=== PATIENT | male | born 1985 | race Caucasian/White ===

== ENCOUNTER 2022-09-07 14:18 | Emergency (ER) | payer BC, OTHER ==
[2022-09-07 15:22] LABS: BASOPHILS ABSOLUTE AUTO 0.08 K/mm3 (0.01-0.08); BASOPHILS PERCENT AUTO 0.7 % (0.1-1.2); EOSINOPHILS ABSOLUTE AUTO 0.15 K/mm3 (0.04-0.54); EOSINOPHILS PERCENT AUTO 1.3 (0.8-7.0); HEMATOCRIT 45.7 % (40.1-51.0); HEMOGLOBIN 15.5 gm/dl (13.7-17.5); IMMATURE GRAN ABSOLUTE AUTO 0.31 K/mm3 (0.00-0.10); IMMATURE GRAN PERCENT AUTO 2.7 % (<=1.0); LYMPHOCYTES ABSOLUTE AUTO 3.16 K/mm3 (1.32-3.57); LYMPHOCYTES PERCENT AUTO 27.2 % (21.8-53.1); MEAN CORPUSCULAR HEMOGLOBIN 28.2 pg (25.7-32.2); MEAN CORPUSCULAR HGB CONC 33.9 g/dl (32.2-35.5); MEAN CORPUSCULAR VOLUME 83.2 fl (79.0-92.2); MEAN PLATELET VOLUME 8.8 fl (9.4-12.3); MONOCYTES ABSOLUTE AUTO 0.84 K/mm3 (0.30-0.82); MONOCYTES PERCENT AUTO 7.2 % (5.3-12.2); NEUTROPHILS ABSOLUTE AUTO 7.09 K/mm3 (1.78-5.38); NEUTROPHILS PERCENT AUTO 60.9 % (34.0-67.9); PLATELET COUNT,PLT 319 K/mm3 (163-337); RED BLOOD CELL COUNT 5.49 M/mm3 (4.63-6.08); WHITE BLOOD CELL COUNT,WBC 11.63 K/mm3 (4.23-9.07)
[2022-09-07 15:46] LABS: CREATINE KINASE,CK 73 U/L (39-308)
[2022-09-07 15:47] LABS: ALANINE AMINOTRANSFERASE,ALT 95 U/L (16-63); ALBUMIN 3.8 g/dl (3.4-5.0); ALKALINE PHOSPHATASE 98 U/L (46-116); ANION GAP 12.6 (5-15); ASPARTATE AMNIOTRANSFERASE,AST 42 U/L (15-37); BILIRUBIN TOTAL 0.4 mg/dL (0.2-1.0); BLOOD UREA NITROGEN,BUN 10 mg/dL (7-18); BUN/CREATININE RATIO 7.7 (14-18); CALCIUM 8.7 mg/dL (8.5-10.1); CARBON DIOXIDE,CO2 25 mEq/L (21-32); CHLORIDE,CL 104 mEq/L (98-107); CREATININE 1.3 mg/dL (0.7-1.3); ESTIMATED GFR 72 mL/min (>60); GLUCOSE RANDOM 135 mg/dL (70-99); POTASSIUM,K 3.6 mEq/L (3.5-5.1); PROTEIN TOTAL,TP 7.6 g/dl (6.4-8.2); SODIUM,NA 138 mEq/L (136-145)
[2022-09-07 15:53] LABS: ACETAMINOPHEN 0 ug/mL (10-30)
[2022-09-07 15:59] LABS: APPEARANCE,URINE CLEAR (Clear); BILIRUBIN,URINE NEGATIVE (Negative); COLOR,URINE YELLOW (Yellow); GLUCOSE,URINE NEGATIVE (Negative); KETONES,URINE NEGATIVE (Negative); LEUKOCYTE ESTERASE,URINE NEGATIVE (Negative); NITRITE,URINE NEGATIVE (Negative); OCCULT BLOOD,URINE NEGATIVE (Negative); PH,URINE 6.5 (5.0-8.0); PROTEIN,URINE NEGATIVE (Negative)
[2022-09-07 16:08] LABS: BARBITURATE SCREEN,URINE NEGATIVE (CUTOFF=200); BENZODIAZEPINES SCREEN,URINE NEGATIVE (CUTOFF=150); BUPRENORPHINE SCREEN,URINE NEGATIVE (CUTOFF=10); METHADONE SCREEN, URINE NEGATIVE (CUT0FF=200); METHAMPHETAMINES SCREEN, URINE NEGATIVE (CUTOFF=500); OXYCODONE SCREEN,URINE NEGATIVE (CUT0FF=100); PROPOXYPHENE SCREEN,URINE NEGATIVE (CUTOFF=300); THC SCREEN,URINE 20 NG/ML NEGATIVE (CUTOFF=50)
[2022-09-07 16:17] LABS: AMPHETAMINES SCREEN, URINE NEGATIVE (CUTOFF=500)
[2022-09-07 16:36] LABS: CORONAVIRUS COVID-19 NAA NEGATIVE (NEGATIVE); INFLUENZA A NAA NEGATIVE (NEGATIVE); RESPIRATORY SYNCYTIAL VIR NAA NEGATIVE (NEGATIVE)
[2022-09-07] MEDS ORDERED: LORazepam 1 MG Tab PO PRN (22:24)
== END 2022-09-08 11:21 ==
LOC: JD.ED 14:18
DX: F33.2 Major depressive disorder, recurrent severe without psychotic features (principal); R00.0 Tachycardia, unspecified; F17.210 Nicotine dependence, cigarettes, uncomplicated; Z79.899 Other long term (current) drug therapy; Z91.048 Other nonmedicinal substance allergy status; Z20.822 Contact with and (suspected) exposure to COVID-19
CPT/HCPCS: 0241U; 36415; 71045; 80053; 80143; 80179; 80306; 80307; 81003; 82550; 85025; 93005; 99285; A9270; 93010; 99284

== ENCOUNTER 2023-07-06 15:39 | Emergency (ER) | payer OTHER ==
[2023-07-06] MEDS: Sodium Chloride 0.9% 1,000 ML IV ONE (17:19)
[2023-07-06 17:39] LABS: BASOPHILS ABSOLUTE AUTO 0.1 K/mm3 (0.0-0.2); BASOPHILS PERCENT AUTO 0.5 % (0.0-1.0); EOSINOPHILS ABSOLUTE AUTO 0.4 K/mm3 (0.0-0.4); EOSINOPHILS PERCENT AUTO 2.3 % (0.0-6.0); HEMATOCRIT 49.3 % (42.0-52.0); HEMOGLOBIN 16.7 gm/dl (14.0-18.0); IMMATURE GRAN ABSOLUTE AUTO 0.23 K/mm3 (0.00-0.05); IMMATURE GRAN PERCENT AUTO 1.5 % (0.0-0.4); LYMPHOCYTES ABSOLUTE AUTO 1.8 K/mm3 (1.0-4.8); LYMPHOCYTES PERCENT AUTO 11.7 % (24.0-44.0); MEAN CORPUSCULAR HEMOGLOBIN 27.2 pg (28.0-32.0); MEAN CORPUSCULAR HGB CONC 33.9 g/dl (32.0-36.0); MEAN CORPUSCULAR VOLUME 80.4 fl (83.0-99.0); MEAN PLATELET VOLUME 8.3 fl (9.4-12.4); MONOCYTES ABSOLUTE AUTO 0.8 K/mm3 (0.0-0.8); MONOCYTES PERCENT AUTO 5.3 % (0.0-8.0); NEUTROPHILS PERCENT AUTO 78.7 % (41.0-71.0); PLATELET COUNT,PLT 276 K/mm3 (150-400); RED BLOOD CELL COUNT 6.13 M/mm3 (4.52-5.90); WHITE BLOOD CELL COUNT,WBC 15.26 K/mm3 (3.9-11.3)
[2023-07-06 18:11] LABS: ALANINE AMINOTRANSFERASE,ALT 52 U/L (16-63); ALBUMIN 3.6 g/dl (3.4-5.0); ALKALINE PHOSPHATASE 101 U/L (46-116); ANION GAP 14.5 (5-15); ASPARTATE AMNIOTRANSFERASE,AST 31 U/L (15-37); BILIRUBIN TOTAL 0.7 mg/dL (0.2-1.0); BLOOD UREA NITROGEN,BUN 15 mg/dL (7-18); BUN/CREATININE RATIO 12.5 (14-18); CALCIUM 8.8 mg/dL (8.5-10.1); CARBON DIOXIDE,CO2 23 mEq/L (21-32); CHLORIDE,CL 103 mEq/L (98-107); CREATININE 1.2 mg/dL (0.7-1.3); ESTIMATED GFR 79 mL/min (>60); GLUCOSE RANDOM 108 mg/dL (70-99); POTASSIUM,K 4.5 mEq/L (3.5-5.1); PROTEIN TOTAL,TP 7.4 g/dl (6.4-8.2); SODIUM,NA 136 mEq/L (136-145); TSH 0.565 uIU/mL (0.358-3.74)
[2023-07-06 18:17] LABS: ACETAMINOPHEN 0 ug/mL (10-30)
[2023-07-06 18:59] LABS: BARBITURATE SCREEN,URINE NEGATIVE (CUTOFF=200); BENZODIAZEPINES SCREEN,URINE PRESUMPTIVE POSITIVE (CUTOFF=150); BUPRENORPHINE SCREEN,URINE NEGATIVE (CUTOFF=10); METHADONE SCREEN, URINE NEGATIVE (CUT0FF=200); METHAMPHETAMINES SCREEN, URINE NEGATIVE (CUTOFF=500); OXYCODONE SCREEN,URINE NEGATIVE (CUT0FF=100); THC SCREEN,URINE 20 NG/ML NEGATIVE (CUTOFF=50)
[2023-07-06 19:02] LABS: AMPHETAMINES SCREEN, URINE NEGATIVE (CUTOFF=500)
== END 2023-07-06 19:21 | disposition home or self-care (01) ==
LOC: JD.ED 15:39
DX: T42.4X1A Poisoning by benzodiazepines, accidental (unintentional), initial encounter (principal); F17.210 Nicotine dependence, cigarettes, uncomplicated; Z79.899 Other long term (current) drug therapy
CPT/HCPCS: 36415; 80053; 80143; 80179; 80306; 80307; 84443; 85025; 93005; 96360; 99284; J7030; 93010; 99283